=== PATIENT | female | born 1985 | race American Indian/Alaskan Native ===

== ENCOUNTER 2020-04-13 14:34 | Emergency (ER) | payer SELFPAY | END 2020-04-13 16:45 | disposition left against medical advice (07) | LOC: ED 14:34 | DX: F41.0 Panic disorder [episodic paroxysmal anxiety] (principal); Z53.21 Procedure and treatment not carried out due to patient leaving prior to being seen by health care provider ==

== ENCOUNTER 2020-06-20 00:41 | Emergency (ER) | payer SELFPAY ==
[2020-06-20 00:58] VITALS: BP 117/74
--- NOTE | 2020-06-20 03:22 | Emergency Department Report ---
ED Psych HPI - General Chief Complaint: Anxiety Stated Complaint: ANXIETY Time Seen by Provider: 06/20/20 03:00 Source: patient Mode of arrival: Ambulatory - History of Present Illness Initial Comments: 34-year-old female with a past medical history of anxiety/panic attacks presents to the ER today complaining of having a panic attack. Onset was yesterday. Patient states that she "lives in a stressful household" which triggered her panic attack. She states that she has been having racing thoughts, she states "my brain will not shut off" and she also reports disassociation from herself. She denies any suicidal ideation or homicidal ideation. She denies any hallucinations. She is currently on Ativan and gabapentin chronically. She states that her psychiatrist is currently trying to get her onto Latuda. She states that she took 2 Ativan's when she had a panic attack, last dose being around 6 PM yesterday afternoon but it did not help. She states she recently mo mikayla here, but typically whenever she would get a flareup of panic attack she usually goes to the ER and they would give her "a shot". She states that she just wants a shot to calm her mind. She is not looking for inpatient treatment. She goes to [facility], as well as [facility] for her psych treatment. She denies any illicit drug use or alcohol abuse. Complaint: other (Panic attack) -: Gradual (today ) - Related Data Allergies Allergy/AdvReac Type Severity Reaction Status Date / Time No Known Allergies Allergy Unverified 06/20/20 00:52 ED Review of Systems ROS: Stated complaint: ANXIETY Other details as noted in HPI Comment: All other systems reviewed and negative Respiratory: denies: cough, shortness of breath, wheezing Cardiovascular: denies: chest pain, palpitations Psychiatric: anxiety. denies: depression, auditory hallucinations, visual hallucinations, homicidal thoughts, suicidal thoughts ED Past Medical Hx - Past Medical History Previous Medical History?: Yes Hx Psychiatric Treatment: Yes (PTSD, bipolar) Additional medical history: recovering drug addict/ alcoholic - Surgical History Past Surgical History?: No - Social History Smoking Status: Current Every Day Smoker Substance Use Type: None ED Physical Exam - General Limitations: No Limitations General appearance: alert, in no apparent distress - Head Head exam: Present: atraumatic, normocephalic, normal inspection - Eye Eye exam: Present: normal appearance, EOMI Pupils: Present: normal accommodation - ENT ENT exam: Present: normal exam, mucous membranes moist - Neck Neck exam: Present: normal inspection - Respiratory Respiratory exam: Present: normal lung sounds bilaterally. Absent: respiratory distress - Cardiovascular Cardiovascular Exam: Present: regular rate, normal rhythm, normal heart sounds - GI/Abdominal GI/Abdominal exam: Absent: soft, distended, tenderness - Psychiatric Psychiatric exam: Present: agitated. Absent: homicidal ideation, suicidal ideation - Skin Skin exam: Present: intact ED Course Vital Signs 06/20/20 00:55 Temperature 98.4 F Pulse Rate 76 Respiratory 17 Rate Blood Pressure 117/74 O2 Sat by Pulse 100 Oximetry ED Medical Decision Making - Medical Decision Making 34-year-old female with a past medical history of anxiety/panic attacks presents to the ER today complaining of having a panic attack. Onset was yesterday. Patient states that she "lives in a stressful household" which triggered her panic attack. She states that she has been having racing thoughts, she states "my brain will not shut off" and she also reports disassociation from herself. She denies any suicidal ideation or homicidal ideation. She denies any hallucinations. She is currently on Ativan and gabapentin chronically. She states that her psychiatrist is currently trying to get her onto Latuda. She states that she took 2 Ativan's when she had a panic attack, last dose being around 6 PM yesterday afternoon but it did not help. She states she recently moved here, but typically whenever she would get a flareup of panic attack she usually goes to the ER and they would give her "a shot". She states that she just wants a shot to calm her mind. She is not looking for inpatient treatment. She goes to [facility], as well as [email or web address] for her psych treatment. She denies any illicit drug use or alcohol abuse. Pt appears agitated but and intermittently tearful. She is not suicidal homicidal or having any hallucination. She does not appear psychotic. She is not toxic appearing, she is not ill-appearing, she appears well-hydrated, and she is neurologically intact. She is mentally stable and capable of making her own medical decisions. Discussed case with Dr. Dunn, agree with just giving either PO Benadryl or Atarax. When off was made to patient, she stated that the Atarax does not work for her and she was requesting Valium. She also reported that she spoke to her mom, and her mom told her she she would get Ativan injections when she went to the ER. Informed patient at this time there is no indication for IM injections of Ativan nor valium when she can just take her usual oral dose of ativan at home tonight. She then requested to speak to Dr Wilcox. Dr Wilcox saw and evaluated pt, pt agreed to IM benadryl and to be discharged home and f/u with her pscyhiatrist. Critical care attestation.: If time is entered above; I have spent that time in minutes in the direct care of this critically ill patient, excluding procedure time. ED Disposition Clinical Impression: Anxiety disorder Disposition: TO HOME OR SELFCARE Is pt being admited?: No Does the pt Need Aspirin: No Condition: Stable Instructions: Managing Anxiety, Adult Additional Instructions: Follow-up with your psychiatrist as discussed on Monday. Continue your regular home medication. Return to the ER if your symptoms worsens or changes in any way. Referrals: LAUREN ORTA MD [Primary Care Provider] - 3-5 Days Time of Disposition: 03:51
[2020-06-20] MEDS ORDERED: diphenhydrAMINE 50 MG/ML VIAL IM ONE (03:50)
== END 2020-06-20 04:50 | disposition home or self-care (01) ==
LOC: ED 00:41
DX: F41.9 Anxiety disorder, unspecified (principal); F17.200 Nicotine dependence, unspecified, uncomplicated; F31.9 Bipolar disorder, unspecified
CPT/HCPCS: 96372; 99282; J1200

== ENCOUNTER 2020-09-08 03:34 | Emergency (ER) | payer SELFPAY ==
[2020-09-08 03:43] VITALS: BP 111/72
== END 2020-09-08 10:22 ==
LOC: ED 03:34
DX: Z53.21 Procedure and treatment not carried out due to patient leaving prior to being seen by health care provider (principal)

== ENCOUNTER 2021-01-30 05:26 | Emergency (ER) | payer SELFPAY ==
[2021-01-30] MEDS ORDERED: SODIUM CHLORIDE 0.9% 1000 ML 1,000 ML IV ONE ×2 (06:42→09:18)
[2021-01-30] MEDS ORDERED: ONDANSETRON 4 MG/2 ML INJ IV ONE (06:42)
[2021-01-30] MEDS ORDERED: LORazepam 2 MG/ML VIAL IV ONE (06:42)
--- NOTE | 2021-01-30 06:54 | Emergency Department Report ---
ED Psych HPI - General Chief Complaint: Alcohol Stated Complaint: PANIC ATTACK Time Seen by Provider: 01/30/21 06:20 Source: patient Mode of arrival: Ambulatory Limitations: No Limitations - History of Present Illness Initial Comments: 35-year-old female with a past medical history of PTSD, bipolar disorder, and alcohol abuse presents to the hospital complaining of relapse of alcohol. Patient has been sober for the past 4 years. For the last 2 days patient has been binge drinking intermittently. Since yesterday afternoon 1 PM she has been drinking wine and spritzers nonstop. Patient complains of feeling like "I am about to ". She complains of several episodes of vomiting. She denies pain. She has been noncompliant with her lithium 300 mg daily, Seroquel 50 mg nightly, Ativan 1 mg twice daily as needed for the last 3 days since she has started drinking. She has not been able to sleep for the last 2 to 3 days. She denies suicidal ideation or homicidal ideation. Patient states she is frustrated because she cannot seem to turn her brain/mind off and she is tired of dealing with mental health. She is on the alcohol to help. Patient moved back to [place] from [place] 2 weeks ago. She has a sponsor and psychiatrist located in [place] but also has a local psychiatrist. Patient has made an appointment for February 24 with her psychiatrist here in the [place] area. 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 Patient expresses that she would like rehabilitation and mental health help. Patient has a history of self harming/cutting behavior but has not cut herself since 2013 - Related Data Home Medications Medication Instructions Recorded Confirmed Last Taken LORazepam [Ativan] 1 mg PO BID 01/30/21 01/30/21 Unknown [place] Carbonate [Eskalith] 300 mg PO BID 01/30/21 01/30/21 Unknown Quetiapine Fumarate [SEROquel XR] 50 mg PO 01/30/21 Unknown Allergies Allergy/AdvReac Type Severity Reaction Status Date / Time No Known Allergies Allergy Unverified 06/20/20 00:52 ED Review of Systems ROS: Stated complaint: PANIC ATTACK Other details as noted in HPI Comment: All other systems reviewed and negative ED Past Medical Hx - Past Medical History Previous Medical History?: Yes Hx Psychiatric Treatment: Yes (PTSD, bipolar) Additional medical history: recovering drug addict/ alcoholic - Surgical History Past Surgical History?: No - Social History Smoking Status: Current Every Day Smoker Substance Use Type: Alcohol - Medications Home Medications: Home Medications Medication Instructions Recorded Confirmed Last Taken Type LORazepam [Ativan] 1 mg PO BID 01/30/21 01/30/21 Unknown History [place] Carbonate [Eskalith] 300 mg PO BID 01/30/21 01/30/21 Unknown History Quetiapine Fumarate [SEROquel XR] 50 mg PO 01/30/21 Unknown History ED Physical Exam - General Limitations: No Limitations - Other Other exam information: General: No acute distress Head: Atraumatic Eyes: normal appearance ENT: Moist mucous membranes Neck: Normal appearance, no midline tenderness Chest: Clear to auscultation bilaterally CV: Regular rate and rhythm Abdomen: Soft, normal bowel sounds, nontender, nondistended, no rebound or guarding Back: Normal inspection Extremity: Normal inspection, full range of motion Neuro: Alert O x 3, no facial asymmetry, speech clear, no gross motor sensory deficit, no tremor Psych: Tearful Skin: Multiple healed cut wounds to left forearm ED Course Vital Signs 01/30/21 01/30/21 01/30/21 05:31 06:23 08:45 Temperature 98.0 F 98.3 F Pulse Rate 113 H 108 H 84 Respiratory 13 20 19 Rate Blood Pressure 122/87 123/78 Blood Pressure 129/84 [Right] O2 Sat by Pulse 100 99 99 Oximetry 01/30/21 01/30/21 09:36 13:21 Temperature 98.2 F Pulse Rate 83 88 Respiratory 20 14 Rate Blood Pressure Blood Pressure 129/89 121/89 [Right] O2 Sat by Pulse 99 99 Oximetry ED Medical Decision Making - Lab Data Result diagrams: 01/30/21 06:41 01/30/21 06:41 Lab Results 01/30/21 01/30/21 01/30/21 Range/Units 06:41 06:41 06:41 WBC 9.4 (4.5-11.0) K/mm3 RBC 4.37 (3.65-5.03) M/mm3 Hgb 11.5 (10.1-14.3) gm/dl Hct 34.7 (30.3-42.9) % MCV 79 (79-97) fl MCH 26 L (28-32) pg MCHC 33 (30-34) % RDW 16.2 H (13.2-15.2) % Plt Count 408 (140-440) K/mm3 Lymph % (Auto) 21.9 (13.4-35.0) % [place] % (Auto) 4.4 (0.0-7.3) % Eos % (Auto) 0.5 (0.0-4.3) % Baso % (Auto) 0.4 (0.0-1.8) % Lymph # (Auto) 2.1 (1.2-5.4) K/mm3 [place] # (Auto) 0.4 (0.0-0.8) K/mm3 Eos # (Auto) 0.0 (0.0-0.4) K/mm3 Baso # (Auto) 0.0 (0.0-0.1) K/mm3 Seg Neutrophils % 72.8 H (40.0-70.0) % Seg Neutrophils # 6.8 (1.8-7.7) K/mm3 Sodium 141 (137-145) mmol/L Potassium 4.3 (3.6-5.0) mmol/L Chloride 107.2 H (98-107) mmol/L Carbon Dioxide 19 L (22-30) mmol/L Anion Gap 19 mmol/L BUN 8 (7-17) mg/dL Creatinine 0.8 (0.6-1.2) mg/dL Estimated GFR > 60 ml/min BUN/Creatinine Ratio 10 % Glucose 75 (65-100) mg/dL Calcium 9.2 (8.4-10.2) mg/dL Magnesium 2.10 (1.7-2.3) mg/dL Total Bilirubin 0.30 (0.1-1.2) mg/dL AST 17 (5-40) units/L ALT 8 (7-56) units/L Alkaline Phosphatase 60 (35-129) units/L Total Protein 8.1 (6.3-8.2) g/dL Albumin 4.5 (3.9-5) g/dL Albumin/Globulin Ratio 1.3 % Lipase 57 (13-60) units/L HCG, Qual (Negative) Urine Color (Yellow) Urine Turbidity (Clear) Urine pH (5.0-7.0) Ur Specific [place] (1.003-1.030) Urine Protein (Negative) mg/dL Urine Glucose (UA) (Negative) mg/dL Urine Ketones (Negative) mg/dL Urine Blood (Negative) Urine Nitrite (Negative) Urine Bilirubin (Negative) Urine Urobilinogen (<2.0) mg/dL Ur Leukocyte Esterase (Negative) Urine WBC (Auto) (0.0-6.0) /HPF Urine RBC (Auto) (0.0-6.0) /HPF U Epithel Cells (Auto) (0-13.0) /HPF Urine Mucus /HPF Urine Opiates Screen Urine Methadone Screen Ur Barbiturates Screen Ur Phencyclidine Scrn Ur Amphetamines Screen U Benzodiazepines Scrn [place] 0.1 (0.0-1.2) mmol/L Urine Cocaine Screen U Marijuana (THC) Screen Plasma/Serum Alcohol (0-0.07) % 01/30/21 01/30/21 01/30/21 Range/Units 06:41 06:41 10:50 WBC (4.5-11.0) K/mm3 RBC (3.65-5.03) M/mm3 Hgb (10.1-14.3) gm/dl Hct (30.3-42.9) % MCV (79-97) fl MCH (28-32) pg MCHC (30-34) % RDW (13.2-15.2) % Plt Count (140-440) K/mm3 Lymph % (Auto) (13.4-35.0) % [place] % (Auto) (0.0-7.3) % Eos % (Auto) (0.0-4.3) % Baso % (Auto) (0.0-1.8) % Lymph # (Auto) (1.2-5.4) K/mm3 [place] # (Auto) (0.0-0.8) K/mm3 Eos # (Auto) (0.0-0.4) K/mm3 Baso # (Auto) (0.0-0.1) K/mm3 Seg Neutrophils % (40.0-70.0) % Seg Neutrophils # (1.8-7.7) K/mm3 Sodium (137-145) mmol/L Potassium (3.6-5.0) mmol/L Chloride (98-107) mmol/L Carbon Dioxide (22-30) mmol/L Anion Gap mmol/L BUN (7-17) mg/dL Creatinine (0.6-1.2) mg/dL Estimated GFR ml/min BUN/Creatinine Ratio % Glucose (65-100) mg/dL Calcium (8.4-10.2) mg/dL Magnesium (1.7-2.3) mg/dL Total Bilirubin (0.1-1.2) mg/dL AST (5-40) units/L ALT (7-56) units/L Alkaline Phosphatase (35-129) units/L Total Protein (6.3-8.2) g/dL Albumin (3.9-5) g/dL Albumin/Globulin Ratio % Lipase (13-60) units/L HCG, Qual Negative (Negative) Urine Color Yellow (Yellow) Urine Turbidity Clear (Clear) Urine pH 5.0 (5.0-7.0) Ur Specific [place] 1.016 (1.003-1.030) Urine Protein <15 mg/dl (Negative) mg/dL Urine Glucose (UA) Neg (Negative) mg/dL Urine Ketones 20 (Negative) mg/dL Urine Blood Neg (Negative) Urine Nitrite Neg (Negative) Urine Bilirubin Neg (Negative) Urine Urobilinogen < 2.0 (<2.0) mg/dL Ur Leukocyte Esterase Neg (Negative) Urine WBC (Auto) 1.0 (0.0-6.0) /HPF Urine RBC (Auto) < 1.0 (0.0-6.0) /HPF U Epithel Cells (Auto) 2.0 (0-13.0) /HPF Urine Mucus Few /HPF Urine Opiates Screen Urine Methadone Screen Ur Barbiturates Screen Ur Phencyclidine Scrn Ur Amphetamines Screen U Benzodiazepines Scrn [place] (0.0-1.2) mmol/L Urine Cocaine Screen U Marijuana (THC) Screen Plasma/Serum Alcohol 0.13 H (0-0.07) % 01/30/21 Range/Units 10:50 WBC (4.5-11.0) K/mm3 RBC (3.65-5.03) M/mm3 Hgb (10.1-14.3) gm/dl Hct (30.3-42.9) % MCV (79-97) fl MCH (28-32) pg MCHC (30-34) % RDW (13.2-15.2) % Plt Count (140-440) K/mm3 Lymph % (Auto) (13.4-35.0) % [place] % (Auto) (0.0-7.3) % Eos % (Auto) (0.0-4.3) % Baso % (Auto) (0.0-1.8) % Lymph # (Auto) (1.2-5.4) K/mm3 [place] # (Auto) (0.0-0.8) K/mm3 Eos # (Auto) (0.0-0.4) K/mm3 Baso # (Auto) (0.0-0.1) K/mm3 Seg Neutrophils % (40.0-70.0) % Seg Neutrophils # (1.8-7.7) K/mm3 Sodium (137-145) mmol/L Potassium (3.6-5.0) mmol/L Chloride (98-107) mmol/L Carbon Dioxide (22-30) mmol/L Anion Gap mmol/L BUN (7-17) mg/dL Creatinine (0.6-1.2) mg/dL Estimated GFR ml/min BUN/Creatinine Ratio % Glucose (65-100) mg/dL Calcium (8.4-10.2) mg/dL Magnesium (1.7-2.3) mg/dL Total Bilirubin (0.1-1.2) mg/dL AST (5-40) units/L ALT (7-56) units/L Alkaline Phosphatase (35-129) units/L Total Protein (6.3-8.2) g/dL Albumin (3.9-5) g/dL Albumin/Globulin Ratio % Lipase (13-60) units/L HCG, Qual (Negative) Urine Color (Yellow) Urine Turbidity (Clear) Urine pH (5.0-7.0) Ur Specific [place] (1.003-1.030) Urine Protein (Negative) mg/dL Urine Glucose (UA) (Negative) mg/dL Urine Ketones (Negative) mg/dL Urine Blood (Negative) Urine Nitrite (Negative) Urine Bilirubin (Negative) Urine Urobilinogen (<2.0) mg/dL Ur Leukocyte Esterase (Negative) Urine WBC (Auto) (0.0-6.0) /HPF Urine RBC (Auto) (0.0-6.0) /HPF U Epithel Cells (Auto) (0-13.0) /HPF Urine Mucus /HPF Urine Opiates Screen Negative Urine Methadone Screen Negative Ur Barbiturates Screen Negative Ur Phencyclidine Scrn Negative Ur Amphetamines Screen Negative U Benzodiazepines Scrn Negative [place] (0.0-1.2) mmol/L Urine Cocaine Screen Negative U Marijuana (THC) Screen Negative Plasma/Serum Alcohol (0-0.07) % - Medical Decision Making Patient presents with acute alcohol intoxication and complaining of worsening psychiatric symptoms. Treated with normal saline and Ativan. evaluated by mental health. Not a candidate for inpatient treatment. Patient getting her current medications. Follow-up information provided. Also provided Tylenol for headache. Pt stable at d/c Critical Care Time: No Critical care attestation.: If time is entered above; I have spent that time in minutes in the direct care of this critically ill patient, excluding procedure time. ED Disposition Clinical Impression: Alcohol abuse, Bipolar disorder Disposition: HOME / SELF CARE / HOMELESS Is pt being admited?: No Does the pt Need Aspirin: No Condition: Stable Instructions: Managing Bipolar Disorder, Alcohol Abuse and Dependence Information, Adult Additional Instructions: Continue your current medications. Follow-up with a psychiatrist and other res ources provided below. Return if symptoms worsen as indicated by your discharge instructions. Professional and Agency Contacts To help [facility] (05/12) [place] Crisis Line: Suicide Prevention Line: Crisis Text Line: Text START to 044959 Emergency: 911 Outpatient COMMUNITY Behavioral Health Resources: [facility]: [facility] [address] [place], [place] [address] [facility] [address] [place] [address] Monday thru Monday - 8am - 5pm Call to schedule an assessment for mental health and substance abuse programs [facility] Address: [address] [place] [address] Monday thru Monday- 7am-2pm [facility] Address: [address] [place] [address] Monday thrmonday: 8:30AM-5PM Referrals: PRIMARY CARE, [Primary Care Provider] - 3-5 Days Time of Disposition: 13:09
[2021-01-30 07:16] LABS: Basophils % (Auto) 0.4 % (0.0-1.8); Eosinophils % (Auto) 0.5 % (0.0-4.3); Hematocrit 34.7 % (30.3-42.9); Hemoglobin 11.5 gm/dl (10.1-14.3); Lymphocytes # (Auto) 2.1 K/mm3 (1.2-5.4); Lymphocytes % (Auto) 21.9 % (13.4-35.0); Mean Corpuscular HGB Conc 33 % (30-34); Mean Corpuscular Volume 79 fl (79-97); Monocytes # (Auto) 0.4 K/mm3 (0.0-0.8); Monocytes % (Auto) 4.4 % (0.0-7.3); Platelet Count 408 K/mm3 (140-440); Red Blood Count 4.37 M/mm3 (3.65-5.03); Red Cell Distribution Width 16.2 % (13.2-15.2)
[2021-01-30 07:38] LABS: Alanine Aminotransferase 8 units/L (7-56); Albumin 4.5 g/dL (3.9-5); BUN/Creatinine Ratio 10; Blood Urea Nitrogen 8 mg/dL (7-17); Calcium 9.2 mg/dL (8.4-10.2); Hemolysis Index 2
[2021-01-30] MEDS ORDERED: ACETAMINOPHEN 500 MG TAB PO ONE (10:50)
--- NOTE | 2021-01-30 11:02 | Consultation ---
History of Present Illness - Reason for Consult Consult date: 01/30/21 Reason for consult: mental health eval - History of Present Psychiatric Illness ED Note: 35-year-old female with a past medical history of PTSD, bipolar disorder, and alcohol abuse presents to the hospital complaining of relapse of alcohol. Patient has been sober for the past 4 years. For the last 2 days patient has been binge drinking intermittently. Since yesterday afternoon 1 PM she has been drinking wine and spritzers nonstop. Patient complains of feeling like "I am about to ". She complains of several episodes of vomiting. She denies pain. She has been noncompliant with her lithium 300 mg daily, Seroquel 50 mg nightly, Ativan 1 mg twice daily as needed for the last 3 days since she has started drinking. She has not been able to sleep for the last 2 to 3 days. She denies suicidal ideation or homicidal ideation. Patient states she is frustrated because she cannot seem to turn her brain/mind off and she is tired of dealing with mental health. She is on the alcohol to help. Patient moved back to [place] from [place] 2 weeks ago. She has a sponsor and psychiatrist located in [place] but also has a local psychiatrist. Patient has made an appointment for February 24 with her psychiatrist here in the [place] area. 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 Patient expresses that she would like rehabilitation and mental health help. Patient has a history of self harming/cutting behavior but has not cut herself since 2013. Lauren Walton is a 35 year old female with history of Bipolar, PTSD, BPD, Alcohol abuse disorder who presents to the ED for alcohol relapse. In my interview with the patient, she reports that she was sober for the past 4 years but relapsed yesterday. She reports consuming a couple of glasses of wine and a beer " I took too much." The patient is unable to state recent stressor but states " I just wanted to drink." She denies any current suicidal/homicidal id eation and denies hallucinations. Diagnoses: Bipolar, PTSD, BPD, Alcohol abuse Suicide attempts or Self-harm behavior: Denies Prior psychiatric hospitalizations: Yes Substance Abuse history: Alcohol Previous psychiatric medications tried: Seroquel, [place], Ativan Outpatient treatment: Yes PAST MEDICAL HISTORY: Family Psychiatric History: Not available SOCIAL HISTORY Marital Status: Single Living Arrangements: Lives girl friend Employment Status: unemployed Access to guns/weapons: None reported Education: GED History of Abuse: Yes Legal History: None reported REVIEW OF SYSTEMS Constitutional: Negative for weight loss ENT: Negative for stridor Respiratory: Negative for cough or hemoptysis All other systems reviewed and are negative MENTAL STATUS EXAMINATION General Appearance and Behavior: Age appropriate, good hygiene, wearing a ppropriate clothes, good eye contact, cooperative polite with questioning. Cooperation: Participating/engaged Psychomotor Behavior: unremarkable and within normal limits Mood: "OK" Affect and affective range: Incongruent with mood Thought Process: goal directed Thought Content: Not suicidal Speech: Normal volume, Regular rate and rhythm Intellectual Functioning: Average Suicidal Ideation: Denies Homicidal Ideation: Denies Hallucinations: Denies Impulse Control: Unimpaired Insight and Judgment: Normal insight and poor judgment Memory: Normal Attention: Divided Orientation: Alert, oriented Assessment and Plan (1) Bipolar disorder, Unspecified Current Visit: Yes Status: Acute F31.9 RECOMMENDATIONS Start Seroquel 50mg po QHS Start [place] 300mg po daily. Risks, benefits and alternatives of medications discussed with the patient, questions answered and consent obtained from patient. PSYCHOTHERAPY: Supportive psychotherapy provided MEDICAL: Per primary team DELIRIUM PRECAUTIONS: Please re-orient patient frequently, keep lights on during the day, and minimize benzodiazepines and opiates as these medications could worsen patient's confusion. CONTRACT ENGINEER: Per medical team DISPOSITION: Do not recommend acute inpatient psychiatric hospitalization at this time. Commercial Trailer Truck Driver will provide safety plan. FOLLOW-UP: Will sign off. Thank you for the consult. Please contact with any questions and/or concerns. Medications and Allergies Medications and Allergies Allergies Allergy/AdvReac Type Severity Reaction Status Date / Time No Known Allergies Allergy Unverified 06/20/20 00:52 Home Medications Medication Instructions Recorded Confirmed Last Taken Type LORazepam [Ativan] 1 mg PO BID 01/30/21 01/30/21 Unknown History [place] Carbonate [Eskalith] 300 mg PO BID 01/30/21 01/30/21 Unknown History Quetiapine Fumarate [SEROquel XR] 50 mg PO 01/30/21 Unknown History Mental Status Exam - Vital signs Last Vital Signs Temp 98.2 F 01/30/21 09:36 Pulse 83 01/30/21 09:36 Resp 20 01/30/21 09:36 BP 129/89 01/30/21 09:36 Pulse Ox 99 01/30/21 09:36 Results Result Diagrams: 01/30/21 06:41 01/30/21 06:41 Abnormal lab results 01/30/21 01/30/21 01/30/21 Range/Units 06:41 06:41 06:41 MCH 26 L (28-32) pg RDW 16.2 H (13.2-15.2) % Seg Neutrophils % 72.8 H (40.0-70.0) % Chloride 107.2 H (98-107) mmol/L Carbon Dioxide 19 L (22-30) mmol/L Plasma/Serum Alcohol 0.13 H (0-0.07) % All other labs normal.
[2021-01-30 11:38] LABS: Bilirubin,Urine NEG (Negative); Blood,Urine NEG (Negative); Color,Urine Yellow (Yellow); Mucus,Urine FEW /HPF; Protein,Urine <15 mg/dL mg/dL (Negative); RBC,Urine < 1.0 /HPF (0.0-6.0); Urobilinogen,Urine < 2.0 mg/dL (<2.0)
[2021-01-30 11:51] LABS: Amphetamine Screen,Urine Negative; Benzodiazepines Screen,Urine Negative; Cannabinoid Screen,Urine Negative; Cocaine Screen,Urine Negative; Methadone Screen,Urine Negative; Opiate Screen,Urine Negative
[2021-01-30] MEDS ORDERED: LITHIUM CARBONATE 300 MG CAP PO SCH (12:00)
[2021-01-30 13:23] VITALS: BP 121/89
[2021-01-30] MEDS ORDERED: QUEtiapine 25 MG TAB PO SCH (22:00)
== END 2021-01-30 13:22 | disposition home or self-care (01) ==
LOC: ED 05:26
DX: F10.129 Alcohol abuse with intoxication, unspecified (principal); F31.9 Bipolar disorder, unspecified; F17.200 Nicotine dependence, unspecified, uncomplicated
CPT/HCPCS: 36415; 80053; 80178; 80307; 81001; 83690; 83735; 84703; 85025; 96361; 96374; 96375; 99284; J2060; J2405; J7030; 80320; G0480

== ENCOUNTER 2021-02-08 15:45 | Emergency (ER) | payer OTHER ==
[2021-02-08 15:55] VITALS: BP 127/79
== END 2021-02-08 16:52 | disposition left against medical advice (07) ==
LOC: ED 15:45
DX: Z00.00 Encounter for general adult medical examination without abnormal findings (principal); Z53.21 Procedure and treatment not carried out due to patient leaving prior to being seen by health care provider

== ENCOUNTER 2021-02-10 10:20 | Emergency (ER) | payer OTHER ==
--- NOTE | 2021-02-10 11:08 | Emergency Department Report ---
ED Psych HPI - General Chief Complaint: Alcohol Stated Complaint: STEPHANIA EVAL Time Seen by Provider: 02/10/21 10:53 Source: patient Mode of arrival: Ambulatory - History of Present Illness Initial Comments: CC: "Am I going to ?" HPI: This is a 35 yo female with hx of bipolar disorder, PTSD, alcohol use disorder who presents with need for detox. She drank alcohol just prior to arrival. She denies suicidal ideation. She denies homicidal ideation. She denies hallucinations. MD Complaint: other (Alcohol ingestion alcohol detox) History of same: Yes Quality: constant Improves With: none Worsens With: none Context: recent alcohol abuse, not taking psychiatric Treatments Prior to Arrival: other (Recent mental health evaluation this month) - Related Data Home Medications Medication Instructions Recorded Confirmed Last Taken LORazepam [Ativan] 1 mg PO BID 01/30/21 01/30/21 Unknown Sunflower Carbonate [Eskalith] 300 mg PO BID 01/30/21 01/30/21 Unknown Quetiapine Fumarate [SEROquel XR] 50 mg PO 01/30/21 Unknown Allergies Allergy/AdvReac Type Severity Reaction Status Date / Time No Known Allergies Allergy Verified 02/10/21 10:42 ED Review of Systems ROS: Stated complaint: MH EVAL Other details as noted in HPI Comment: All other systems reviewed and negative Constitutional: denies: chills, fever, malaise Respiratory: denies: cough Gastrointestinal: denies: abdominal pain, nausea, vomiting Psychiatric: depression. denies: auditory hallucinations, visual hallucinations, homicidal thoughts, suicidal thoughts ED Past Medical Hx - Past Medical History Previous Medical History?: Yes Hx Psychiatric Treatment: Yes (PTSD, bipolar) Additional medical history: recovering drug addict/ alcoholic - Social History Smoking Status: Current Every Day Smoker Substance Use Type: Alcohol - Medications Home Medications: Home Medications Medication Instructions Recorded Confirmed Last Taken Type LORazepam [Ativan] 1 mg PO BID 01/30/21 01/30/21 Unknown History Sunflower Carbonate [Eskalith] 300 mg PO BID 01/30/21 01/30/21 Unknown History Quetiapine Fumarate [SEROquel XR] 50 mg PO 01/30/21 Unknown History ED Physical Exam - General Limitations: No Limitations General appearance: alert, in no apparent distress - Head Head exam: Present: atraumatic, normocephalic - Eye Eye exam: Present: normal appearance - ENT ENT exam: Present: mucous membranes moist - Neck Neck exam: Present: normal inspection - Respiratory Respiratory exam: Present: normal lung sounds bilaterally. Absent: respiratory distress, wheezes, rales, rhonchi - Cardiovascular Cardiovascular Exam: Present: regular rate, normal rhythm, normal heart sounds. Absent: systolic murmur, diastolic murmur, rubs, gallop - GI/Abdominal GI/Abdominal exam: Present: soft, normal bowel sounds. Absent: distended, tenderness, guarding, rebound - Extremities Exam Extremities exam: Present: normal inspection - Neurological Exam Neurological exam: Present: alert, oriented X3 - Psychiatric Psychiatric exam: Present: agitated - Skin Skin exam: Present: warm, dry, intact, normal color. Absent: rash ED Medical Decision Making - Medical Decision Making 1. Alcohol use disorder: Patient Repeating "am I going to " patient denied suicidal ideation athough "SI" documented in triage note. Patient eloped prior to further treatment. She was seen by angiogram by another person. I do not feel patient is a harm to herself at this time. No further action needed Critical care attestation.: If time is entered above; I have spent that time in minutes in the direct care of this critically ill patient, excluding procedure time. ED Disposition Clinical Impression: Alcohol use disorder Disposition: 07 LEFT AWOL/ELOPED Is pt being admited?: No Does the pt Need Aspirin: No
== END 2021-02-10 15:00 | disposition left against medical advice (07) ==
LOC: ED 10:20
DX: F10.920 Alcohol use, unspecified with intoxication, uncomplicated (principal); F31.9 Bipolar disorder, unspecified; F17.200 Nicotine dependence, unspecified, uncomplicated; Z79.899 Other long term (current) drug therapy; Y90.9 Presence of alcohol in blood, level not specified
CPT/HCPCS: 99281

== ENCOUNTER 2021-02-17 17:37 | Emergency (ER) | payer SELFPAY | END 2021-02-17 17:40 | disposition left against medical advice (07) | LOC: ED 17:37 | DX: R56.9 Unspecified convulsions (principal); Z53.21 Procedure and treatment not carried out due to patient leaving prior to being seen by health care provider ==

== ENCOUNTER 2021-02-17 17:42 | Emergency (ER) | payer SELFPAY ==
[2021-02-17] MEDS ORDERED: ZIPRASIDONE MESYLATE 20 MG VIAL IM ONE (17:46)
[2021-02-17] MEDS ORDERED: LORazepam 2 MG TAB PO PRN (17:57)
[2021-02-17] MEDS ORDERED: LORazepam 2 MG/ML VIAL IV PRN (17:57)
[2021-02-17 18:19] LABS: Amphetamine Screen,Urine Negative; Benzodiazepines Screen,Urine Negative; Cannabinoid Screen,Urine Negative; Cocaine Screen,Urine Negative; Methadone Screen,Urine Negative; Opiate Screen,Urine Negative
[2021-02-17 18:22] LABS: Bilirubin,Urine NEG (Negative); Blood,Urine NEG (Negative); Color,Urine Yellow (Yellow); Protein,Urine <15 mg/dL mg/dL (Negative); Urobilinogen,Urine < 2.0 mg/dL (<2.0)
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
[2021-02-17 21:57] LABS: Basophils # (Auto) 0.1 K/mm3 (0.0-0.1); Basophils % (Auto) 0.6 % (0.0-1.8); Eosinophils # (Auto) 0.1 K/mm3 (0.0-0.4); Eosinophils % (Auto) 0.7 % (0.0-4.3); Hematocrit 36.9 % (30.3-42.9); Hemoglobin 12.4 gm/dl (10.1-14.3); Lymphocytes # (Auto) 3.3 K/mm3 (1.2-5.4); Lymphocytes % (Auto) 34.6 % (13.4-35.0); Mean Corpuscular HGB Conc 34 % (30-34); Mean Corpuscular Volume 79 fl (79-97); Monocytes # (Auto) 0.4 K/mm3 (0.0-0.8); Monocytes % (Auto) 4.1 % (0.0-7.3); Platelet Count 433 K/mm3 (140-440); Red Blood Count 4.65 M/mm3 (3.65-5.03); Red Cell Distribution Width 17.5 % (13.2-15.2)
[2021-02-17 22:12] LABS: BUN/Creatinine Ratio 9; Blood Urea Nitrogen 7 mg/dL (7-17); Calcium 8.8 mg/dL (8.4-10.2); Hemolysis Index 2
[2021-02-18] MEDS ORDERED: ZIPRASIDONE MESYLATE 20 MG VIAL IM ONE (04:20)
[2021-02-18] MEDS: LORazepam 2 MG TAB PO PRN ×2 (04:32→09:30)
[2021-02-18 07:46] VITALS: BP 111/78
[2021-02-18] MEDS ORDERED: LORazepam 1 MG TAB ONE (09:28)
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
--- NOTE | 2021-02-18 11:31 | Emergency Department Report ---
Blank Doc - Documentation Documentation: 35-year-old cleared by mental health for discharge. History alcohol abuse and probable disorder. Continue home meds Patient required Geodon during assessment last night and Ativan this morning for alcohol withdrawal Vital signs unremarkable. Patient, cooperative without complaints Patient be discharged with outpatient resources and to continue home medications
== END 2021-02-18 11:43 | disposition home or self-care (01) ==
LOC: EEVIPCON 17:42 → ED 17:42
DX: F10.920 Alcohol use, unspecified with intoxication, uncomplicated (principal); F17.200 Nicotine dependence, unspecified, uncomplicated; Z20.822 Contact with and (suspected) exposure to COVID-19; Z79.899 Other long term (current) drug therapy; Y90.9 Presence of alcohol in blood, level not specified
CPT/HCPCS: 36415; 80048; 80307; 81001; 84703; 85025; 96372; 99284; J3486; U0003; 80320; G0480